=== PATIENT | male | born 1955 | race Caucasian/White ===

== ENCOUNTER 2016-11-05 11:39 | Emergency (ER) | payer MEDICAID ==
[~2016-11-05] VITALS: Ht 182.9 cm; Wt 68.0 kg
[2016-11-05 14:15] VITALS: BP 144/85
== END 2016-11-05 14:18 | disposition home or self-care (01) ==
LOC: EDBD 11:39 → ER 11:46
DX: M54.2 Cervicalgia (principal); M50.30 Other cervical disc degeneration, unspecified cervical region; E11.9 Type 2 diabetes mellitus without complications; W19.XXXA Unspecified fall, initial encounter; Y93.89 Activity, other specified; Y99.8 Other external cause status; Y92.89 Other specified places as the place of occurrence of the external cause
CPT/HCPCS: 72125